=== PATIENT | female | born 1960 | race Caucasian/White ===

== ENCOUNTER → 2018-06-10 | Emergency (ER) | payer OTHER ==
[~2018-06-10] VITALS: Ht 167.6 cm; Wt 72.1 kg
[~2018-06-10] MED LIST: CYCLOBENZAPRINE10 MG PO; KETO10TA2 PO; ZITHROMAX500 MG PO
== END | disposition home or self-care (01) ==
LOC: ER 17:34
DX: J35.01 Chronic tonsillitis (principal); R50.9 Fever, unspecified